=== PATIENT | female | born 1970 | race Caucasian/White ===

== ENCOUNTER 2020-08-13 10:00 | Outpatient (CLI) | payer MEDICAID ==
[~2020-08-13] VITALS: Ht 165.1 cm; Wt 90.7 kg
== END 2021-08-13 11:00 | disposition home or self-care (01) ==
LOC: SLB 10:00 → EDSTATUS 08-15 08:45
PROVIDERS: ATTEND Internal Medicine
DX: Z01.818 Encounter for other preprocedural examination (principal); Z20.822 Contact with and (suspected) exposure to COVID-19
CPT/HCPCS: 36415; U0003

== ENCOUNTER 2021-08-30 07:07 | Day surgery (SDC) | payer MEDICAID ==
[2021-08-30] MEDS ORDERED: fentaNYL CITRATE/PF 100 MCG/2 ML AMP ONE (08:40)
[2021-08-30] MEDS: MEPERIDINE 100 MG INJ. 100 MG/ML VIAL ONE ×2 (10:08→10:17)
[2021-08-30] MEDS: MIDAZOLAM HCL 5 MG/5 ML VIAL ONE ×3 (10:08→10:13)
[2021-08-31 10:51] VITALS: BP_SYST 131
== END 2021-08-30 11:12 | disposition home or self-care (01) ==
LOC: SDS 07:07 → STU 07:12 → SDS 11:12
PROVIDERS: ATTEND Internal Medicine
DX: Z12.11 Encounter for screening for malignant neoplasm of colon (principal); D12.5 Benign neoplasm of sigmoid colon; K64.8 Other hemorrhoids; Z20.822 Contact with and (suspected) exposure to COVID-19; Z79.899 Other long term (current) drug therapy
CPT/HCPCS: 36415; 45385; 87426; 88305; 99152; G0378; J2175; J2250; 45378; 45382; 45384; J3010